=== PATIENT | female | born 1980 | race Caucasian/White ===

== ENCOUNTER 2019-08-06 16:48 | Inpatient (IN) | payer MEDICAID ==
[~2019-08-06] VITALS: Ht 157.5 cm; Wt 79.4 kg
[2019-08-06] MEDS ORDERED: LACTATED RINGERS 1,000 ML IV SCH (17:30)
[2019-08-06] MEDS ORDERED: RHO(D) IMMUNE GLOBULIN 300 MCG/SYR IM SCH (17:45)
[2019-08-06 18:21] LABS: HEMATOCRIT. 31.2 % (36.0-48.0); MEAN CORPUSCULAR HEMOGLOBIN 34.3 pg (28.0-32.0); MEAN CORPUSCULAR VOLUME 97.8 fL (81.0-99.0); RED BLOOD CELL COUNT 3.19 mill/uL (4.2-5.4)
[2019-08-06 18:22] LABS: BASOPHILS % 0.5 % (0.0-2.0); CLARITY URINE CLEAR (CLEAR); COLOR URINE YELLOW (YELLOW); EOSINOPHILS % 0.7 % (0.0-5.0); KETONES URINE NEGATIVE (NEGATIVE); LEUKOCYTE ESTERASE URINE TRACE (NEGATIVE); LYMPHOCYTES % 26.3 % (20.0-50.0); MEAN PLATELET VOLUME 8.3 fl (7.4-10.4); MONOCYTES % 7.5 % (2.0-8.0); NITRITE URINE NEGATIVE (NEGATIVE); OCCULT BLOOD URINE 3+ (NEGATIVE); PH URINE 6.5 (4.5-8.0); PLATELET 195 x1000/uL (130-400); PROTEIN URINE NEGATIVE (NEGATIVE); RED CELL DISTRIBUTION WIDTH 13.9 % (11.6-14.6); SPECIFIC GRAVITY URINE 1.004 (1.005-1.030); UROBILINOGEN URINE 0.2 E.U./dL (0.2-1.0)
[2019-08-06 18:31] LABS: CANNABINOID URINE SCREEN NEGATIVE (NEGATIVE); PHENCYCLIDINE URINE SCREEN NEGATIVE (NEGATIVE)
[2019-08-06 18:32] LABS: *AMPHETAMINES SCREEN URINE NEGATIVE (NEGATIVE); *BARBITURATES SCREEN URINE NEGATIVE (NEGATIVE); *BENZODIAZEPINES SCREEN URINE NEGATIVE (NEGATIVE); *COCAINE SCREEN URINE NEGATIVE (NEGATIVE); METHADONE URINE SCREEN NEGATIVE (NEGATIVE); OPIATES URINE SCREEN NEGATIVE (NEGATIVE)
[2019-08-06 18:35] LABS: INR 0.9; PARTIAL THROMBOPLASTIN TIME 26.9 sec (23.4-31.0); PROTHROMBIN TIME 9.6 sec (9.6-11.0)
[2019-08-06 18:59] LABS: HEPATITIS B SURFACE ANTIGEN NEGATIVE
[2019-08-06] MEDS: LACTATED RINGERS 1,000 ML IV SCH ×2 (20:23→23:09)
[2019-08-07] MEDS: LACTATED RINGERS 1,000 ML IV SCH (03:03)
[2019-08-07] MEDS ORDERED: LIDOCAINE HCL 1% 20ML VIAL (Pyxis) INJ INFIL SCH (07:30)
[2019-08-07] MEDS ORDERED: METHYLERGONOVINE MALEATE 0.2 MG/ML IM PRN ×2 (07:30→17:00)
[2019-08-07] MEDS ORDERED: NALOXONE HCL 0.4 MG/ML 1ML VIAL IM PRN (07:30)
[2019-08-07] MEDS: DEXT 5%/LR + PITOCIN 20UNITS/L 1,000 ML IV SCH ×2 (11:45→18:48)
[2019-08-07] MEDS ORDERED: BUTORPHANOL TARTRATE 2 MG/ML VIAL IM PRN (13:30)
[2019-08-07] MEDS ORDERED: SODIUM CHLORIDE 0.9% IRRIG SOLUTION 1000ML IR NR (16:00)
[2019-08-07] MEDS ORDERED: DEXT 5%/LR + PITOCIN 20UNITS/L 1,000 ML IV SCH (16:55)
[2019-08-07] MEDS ORDERED: IBUPROFEN 400MG TABLET PO PRN (17:00)
[2019-08-07] MEDS ORDERED: HEMORRHOIDAL SUPP PR PRN (17:00)
[2019-08-07] MEDS ORDERED: MISOPROSTOL 200MCG TABLET RC ONE (17:00)
[2019-08-07] MEDS ORDERED: ACETAMINOPHEN WITH CODEINE 300/30MG TABLET PO PRN (17:00)
[2019-08-07] MEDS ORDERED: DIPHENHYDRAMINE 25MG CAPSULE PO PRN (17:00)
[2019-08-07] MEDS ORDERED: BENZOCAINE/LANOLIN/ALOE VERA SPRAY TOP PRN (17:00)
[2019-08-07] MEDS ORDERED: LANOLIN OINT 7GM TUBE TOP PRN (17:00)
[2019-08-07] MEDS ORDERED: MISOPROSTOL 200MCG TABLET RC NR (17:00)
[2019-08-07] MEDS ORDERED: GLYCERIN/WITCH HAZEL LEAF MEDICATED PAD TOP PRN (17:00)
[2019-08-07] MEDS ORDERED: BISACODYL 10MG SUPP PR PRN (17:00)
[2019-08-07 18:30] VITALS: BP 117/54
[2019-08-07 19:15] VITALS: BP 98/65
[2019-08-07 19:45] VITALS: BP 100/60
[2019-08-07 20:23] LABS: HEMATOCRIT. 31.1 % (36.0-48.0); MEAN CORPUSCULAR HEMOGLOBIN 34.6 pg (28.0-32.0); MEAN CORPUSCULAR VOLUME 97.7 fL (81.0-99.0); MEAN PLATELET VOLUME 7.8 fl (7.4-10.4); PLATELET 162 x1000/uL (130-400); RED BLOOD CELL COUNT 3.19 mill/uL (4.2-5.4); RED CELL DISTRIBUTION WIDTH 13.7 % (11.6-14.6)
[2019-08-07 20:46] LABS: PLATELET ESTIMATE NORMAL
[2019-08-07] MEDS ORDERED: DOCUSATE SODIUM 100MG CAPSULE PO SCH (21:00)
[2019-08-08] VITALS: BP 98/60
[2019-08-08] MEDS: SIMETHICONE 80MG TABLET CHEW PO SCH ×2 (00:32→08:07)
[2019-08-08] MEDS: IBUPROFEN 800MG TABLET PO PRN ×3 (00:34→16:34)
[2019-08-08] MEDS ORDERED: IBUP-2030 PO (06:38)
[2019-08-08] MEDS ORDERED: NORE0.3520 MT (06:38)
[2019-08-08] MEDS ORDERED: FERR325T23 PO (06:38)
[2019-08-08] MEDS ORDERED: FERROUS SULFATE 325MG TABLET PO SCH (07:30)
[2019-08-08 08:00] VITALS: BP_SYST 92; BP_SYST 93; BP_DIAS 50; BP_DIAS 71
[2019-08-08] MEDS ORDERED: PRENATAL VIT/FE FUMARATE/FA TABLET PO SCH (09:00)
[2019-08-08 16:00] VITALS: BP 100/59
== END 2019-08-08 18:40 | disposition home or self-care (01) | DRG 560 ==
LOC: 8 EST LDRP 16:48 → INTOOBSV 16:48 → OBSVTOIN 16:48 → 8 EST LDRP 18:00 → 8EST 08-07 18:30
PROVIDERS: ADMIT Obstetrics & Gynecology; ATTEND Obstetrics & Gynecology
PROC: 10E0XZZ Delivery of Products of Conception, External Approach (ICD-10-PCS; principal; 2019-08-07)
PROC: 0KQM0ZZ Repair Perineum Muscle, Open Approach (ICD-10-PCS; 2019-08-07)
DX: O76 Abnormality in fetal heart rate and rhythm complicating labor and delivery (principal); O69.81X0 Labor and delivery complicated by cord around neck, without compression, not applicable or unspecified; O70.1 Second degree perineal laceration during delivery; Z37.0 Single live birth; Z3A.39 39 weeks gestation of pregnancy
CPT/HCPCS: 36415; 76805; 76818; 80305; 81003; 85025; 86592; 86703; 86762; 86850; 86900; 87340; 99281; G0378; J0595; J2590; J3490; J7120